=== PATIENT | female | born 1975 | race Caucasian/White ===

== ENCOUNTER 2018-03-01 05:06 | Emergency (ER) | payer OTHER, SELFPAY ==
[2018-03-01 05:07] VITALS: BP 129/86; PULSE 73; RESP 16; TEMP 36.6; O2SAT 100; BMI 19.8
--- NOTE | 2018-03-01 05:13 | ED.DCSUM_ITS ---
- ER Visit Summary Date of Service: 03/01/18 Chief Complaint: Sore throat History of Present Illness: The patient is a 42 F with sore throat congestion that started yesterday. She had fever up to 102. Patient did take Excedrin prior to arrival. Patient states that 3 of her children had strep last week. Physical Examination: Vital signs are unremarkable. Temperature here is 98.0. Head neck examination reveals TMs to be clear bilaterally. She has 1+ tonsils with posterior pharyngeal drainage. Uvula is midline. She is tolerating secretions well has a strong voice. She is mild bilateral cervical lymphadenopathy. Heart is regular rate and rhythm. Lung sounds are clear. Abdomen is soft nontender. Test Results: [] Emergency Department Course and Treatment: With known exposure to strep patient will be treated with antibiotics. She will be receiving first dose of amoxicillin here and written for a 10 day course. Treatment Plan: [] Disposition: Discharge Impression: Pharyngitis, presumed strep This note was generated with [employer] dictation software. It may contain incorrect words, spelling, and punctuation that were not noted in review of the chart prior to signing ED Disposition - Plan for ED Patient: Chief Complaint: Sore Throat Referrals: [facility] Doctor,Out of [Primary Care Provider] -
--- NOTE | 2018-03-01 05:13 | ED.DEP ---
ED Disposition - Plan for ED Patient: Disposition: Home or Assisted Living Chief Complaint: Sore Throat Instructions: ED Strep Pharyngitis Poss Prescriptions: Amoxicillin 500 mg PO TID #30 tablet Referrals: Amelia Noble MD [STAFF PHYSICIAN] - 1 Week
[2018-03-01] MEDS: AMOXICILLIN 500 MG CAPSULE PO (05:17)
== END 2018-03-01 05:22 | disposition home or self-care (01) ==
PROVIDERS: Emergency Provider Emergency Medicine
DX: J02.9 Acute pharyngitis, unspecified (principal); Z72.0 Tobacco use
CPT/HCPCS: 99283

== ENCOUNTER 2020-08-05 12:17 | Emergency (ER) | payer SELFPAY ==
[2020-08-05 12:18] VITALS: BP 127/70; PULSE 94; RESP 17; TEMP 36.6; O2SAT 98; BMI 23.9
--- NOTE | 2020-08-05 12:28 | CT_ITS ---
STUDY: CT ABDOMEN AND PELVIS WITH CONTRAST REASON FOR EXAM: Female, 44 years old. BILAT LOWER QUADRANT PAIN, N/V RADIATION DOSAGE (If Supplied By Facility): CTDIvol = ( 13.14 ) mGy, DLP = ( 473.84 ) mGycm TECHNIQUE: Transaxial images were obtained from the dome of the diaphragm to the symphysis pubis without oral contrast. IV 100mL Isovue-300 was administered. Sagittal and coronal images were reconstructed. Individualized dose optimization techniques were used for this CT. COMPARISON: Comparison is made with prior examination dated 07/01/2013. FINDINGS: The visualized lung bases are unremarkable. The visualized portions of the heart are within normal limits. Normal liver. There are surgical clips in the gallbladder fossa consistent with a prior cholecystectomy. Normal spleen. Normal pancreas. Normal bilateral adrenal glands. Normal right kidney. Normal left kidney. Normal visualized stomach. Fluid-filled nondilated small bowel loops. Enteritis should be ruled out. Fluid and fecal material are seen in the colon. There is non-visualization of the appendix. Normal abdominal aorta. Normal inferior vena cava. Normal retroperitoneum. Normal urinary bladder. There is absence of the uterus consistent with a prior hysterectomy. Normal abdominal wall. Normal osseous structures. CT/Abdomen/Pelvis W IV Cont ONLY IMPRESSION: Fluid filled nondistended small bowel loops. Fluid is also seen in the colon. Enteritis. The patient is status post cholecystectomy. Electronically Signed: Vahid Villanueva MD at 13:58 EST , Service support ,
[2020-08-05] MEDS: Ondansetron 4 MG/2 ML Vial IV (12:39)
[2020-08-05] MEDS: Morphine 4 MG/ML Syringe IV (12:39)
[2020-08-05] MEDS: 0.9% Normal Saline 1,000 ML 1000 ML IV (12:39)
[2020-08-05 12:42] VITALS: BP 127/70; PULSE 94; RESP 17; TEMP 36.6; O2SAT 98
[2020-08-05 12:58] LABS: Absolute Lymphocyte Count 2.32 X10^3/uL (0.83-4.51); Absolute Neutrophil Count 18.1 X10^3/uL (2.0-7.7); Basophil# 0.07 X10^3/uL; Basophil% 0.3 % (0-1); Eosinophils% 0.9 % (0-5); Hematocrit 47.7 % (37-47); Hemoglobin 15.7 g/dL (12.0-15.0); Lymphocyte # 2.32 X10^3/ul (4.0); Lymphocyte % 10.7 % (19-41); Mean Corp Hgb Conc 32.9 g/dL (32-36); Mean Corpuscular Hgb 32.3 pg (27.0-32.0); Mean Corpuscular Volume 98.1 fL (81-99); Mean Platelet Vol. 9.2 fl (6.2-12.0); Monocyte# 0.93 X10^3/uL; Monocyte% 4.3 % (0-10); NRBC Flagged by Analyzer 0 % (0-5); Neutrophil # 18.08 X10^3/uL (2.7-7.7); Neutrophil % 83.3 % (47-70); Platelet Count 320 K/mm3 (150-450); RBC Distribution Width CV 12.5 % (11.6-14.6); RBC Distribution Width SD 45.7 fl (35.1-43.9); Red Blood Count 4.86 M/mm3 (4.2-5.4); White Blood Count 21.7 K/mm3 (4.4-11.0)
--- NOTE | 2020-08-05 13:08 | ED.DCSUM_ITS ---
History of Present Illness Chief Complaint: Abd Pain Informant: Patient Onset: Today Context: Gradual Onset Timing: Continuous Current Severity: Moderate Maximum Severity: Moderate Narrative: Patient is a 44-year-old female with medical history significant for prior hysterectomy, appendectomy, laparoscopy for endometriosis who presents to the emergency department nausea and vomiting along with cramping abdominal pain. The patient was in her normal state of health. She states yesterday, she had some cramping and one bout of loose watery diarrhea. She states today, she woke and had an episode of emesis. She states by the time she got here, she had vomited again. She states the pain comes in waves. She denies fevers but does admit to chills. She has no history of bowel obstruction. She is otherwise been in her normal state of health. Prior similar symptoms: No Recent Illness/Hospitalization: No Past Medical History - Allergies and Home Meds Allergies/Adverse Reactions: Allergies erythromycin base Allergy (Verified 08/05/20 12:18) Rash Primary Care Physician: Care Physician,No Primary [Primary Care Provider] - Prior records reviewed: Yes Past Medical History: - - Endometriosis Surgical History: appendectomy, hysterectomy Smoking Status: Current every day smoker Review of Systems General: Denies: Chills, Fever, Sweats Eyes: Denies: Visual changes - bilaterally, Diplopia ENT: Denies: Rhinorrhea, Sore throat Cardiovascular: Denies: Chest pain, Palpitations Respiratory: Denies: Dyspnea, Cough, Dyspnea on exertion Gastrointestinal: Reports: Nausea, Vomiting. Denies: Abdominal pain, Diarrhea, Melena, Hematochezia Genitourinary: Denies: Dysuria, Hematuria, Frequency Musculoskeletal: Denies: Back pain, Extremity Pain Skin: Denies: Rash, Wounds Neurological: Denies: Headache, Weakness, Numbness Physical Exam Vital Signs/Narrative: Vital Signs Temp Pulse Resp BP Pulse Ox 08/05/20 12:42 97.9 F 94 17 127/70 H 98 08/05/20 12:18 97.9 F 94 17 127/70 H 98 Inital Vital Signs reviewed: Yes General: Well nourished, Well developed, No Acute Distress Head: Normocephalic, Atraumatic Eyes: Perrl, EOMI ENT: Moist mucous membranes, No rhinorrhea Neck: Supple, Nontender Cardiovascular: Regular rate, Regular rhythm, No murmurs Respiratory: No distress, CTA bilaterally, Chest nontender Abdomen: Soft, Nondistended, Tender, Hyperactive bowel sounds. Negative for: Guarding Back: Nontender, Normal Inspection Extremities: Nontender, No edema Skin: Normal color, No rash Neurological: Alert, Oriented x3, Cranial nerves II-XII grossly intact, Normal Strength, Normal Sensation Psychological: Normal affect, Normal Mood Diagnostic/Tx/Re-eval Clinical Impression(s) from Imaging Studies Abdomen/Pelvis CT 08/05/20 12:28 IMPRESSION: Fluid filled nondistended small bowel loops. Fluid is also seen in the colon. Enteritis. The patient is status post cholecystectomy. Electronically Signed: Vahid Villanueva MD at 13:58 EST , Service support , Abnormal Lab Results 08/05/20 08/05/20 12:40 12:40 WBC 21.7 H RBC 4.86 Hgb 15.7 H Hct 47.7 H MCV 98.1 MCH 32.3 H MCHC 32.9 RDW Std Deviation 45.7 H RDW Coeff of Ahsan 12.5 Plt Count 320 MPV 9.2 Immature Gran % (Auto) 0.500 Neut % (Auto) 83.3 H Lymph % (Auto) 10.7 L [place] % (Auto) 4.3 Eos % (Auto) 0.9 Baso % (Auto) 0.3 Absolute Neuts (auto) 18.1 H Absolute Lymphs (auto) 2.32 Nucleated RBC % 0 Sodium 141 Potassium 3.9 Chloride 110 H Carbon Dioxide 24.0 Anion Gap 7 BUN 20 H Creatinine 0.89 Estim Creat Clear Calc 67.42 Est GFR (MDRD) Af Amer 89 Est GFR (MDRD) Non-Af 74 BUN/Creatinine Ratio 22.5 H Glucose 101 Calcium 9.6 Total Bilirubin 0.30 AST 16 ALT 23 Alkaline Phosphatase 101 Total Protein 7.9 Albumin 4.3 Globulin 3.6 Albumin/Globulin Ratio 1.2 Lipase 94 - Medical Decision Making The patient presents with abdominal cramping, nausea, vomiting, diarrhea. She did take Imodium which seemed to help the diarrhea, but then she had vomiting. She is also had some diffuse tenderness without rebound or guarding. Patient has had multiple abdominal surgeries. I did want to rule out bowel obstruction. IV was established. Patient does have a leukocytosis, but otherwise her labs are unremarkable. She was given IV fluids and Zofran. She is feeling markedly improved on reevaluation. Patient underwent CT imaging. There is no evidence of bowel obstruction. There is enteritis which does fit with her symptoms. My suspicion is that this is viral. Patient is now resting comfortably with res olution of her symptoms. I am going to treat her symptomatically. I do feel that she is safe for outpatient follow-up. Impression 1. Gastroenteritis ED Disposition - Plan for ED Patient: Instructions: ED Gastroenteritis, Viral (Adult) Prescriptions: Dicyclomine HCl [Bentyl] 20 mg PO TIDAC #20 cap Prescription Printed Ondansetron [Zofran Odt] 4 mg PO Q8H PRN PRN #10 tab PRN Reason: Nausea Prescription Printed Referrals: Care Physician,No Primary [Primary Care Provider] -
[2020-08-05 13:20] LABS: ALB/GLOB Ratio 1.2 RATIO (0.9-2.4); AST(SGOT) 16 U/L (15-37); Alanine Aminotransfer ALT/SGPT 23 U/L (13-56); Albumin, Serum 4.3 g/dL (3.2-5.0); Alkaline Phosphatase 101 U/L (45-117); Anion Gap 7 (5-15); BUN 20 mg/dL (7-18); BUN/Creat Ratio 22.5 RATIO (10-20); Calcium,Total 9.6 mg/dL (8.5-10.1); Chloride 110 mmol/L (98-107); Creatinine, Serum 0.89 mg/dL (0.55-1.02); EST Glomerular Filtration Rate 74 mL/min (>60); Est Glom Filt Rate - Afr Amer 89 mL/min (>60); Estimated Creatinine Clearance 67.42 ml/min; Globulin 3.6 g/dL (2.2-4.2); Glucose 101 mg/dL (74-106); Lipase 94 U/L (73-393); Potassium 3.9 mmol/L (3.5-5.1); Protein, Total 7.9 g/dL (6.4-8.2); Sodium Level 141 mmol/L (136-145)
[2020-08-05 14:16] VITALS: BP 114/67; PULSE 59; RESP 16; O2SAT 97
== END 2020-08-05 14:17 | disposition home or self-care (01) ==
LOC: ED 13:06
PROVIDERS: Emergency Provider Emergency Medicine
DX: K52.9 Noninfective gastroenteritis and colitis, unspecified (principal); F17.200 Nicotine dependence, unspecified, uncomplicated; Z90.49 Acquired absence of other specified parts of digestive tract; Z90.710 Acquired absence of both cervix and uterus
CPT/HCPCS: 74177; 80053; 83690; 85025; 96361; 96374; 96375; 99284; J7030; Q9967; J2405